=== PATIENT | female | born 2000 | race Caucasian/White ===

== ENCOUNTER 2024-10-25 09:15 | Emergency (ER) | payer MEDICAID ==
[~2024-10-25] VITALS: Ht 160 cm; Wt 122.7 kg
[2024-10-25 09:23] VITALS: BP 125/92; PULSE 78; RESP 16; O2SAT 100
[2024-10-25] MEDS ORDERED: POLOS EACHEYE (10:05)
[2024-10-25] MEDS ORDERED: CEPH-585 PO (10:05)
[2024-10-25 10:10] VITALS: TEMP 96.1
== END 2024-10-25 10:12 | disposition home or self-care (01) ==
LOC: ER 09:16
DX: H01.001 Unspecified blepharitis right upper eyelid (principal)
CPT/HCPCS: 99283

== ENCOUNTER 2025-02-16 15:00 | Emergency (ER) | payer MEDICAID ==
[~2025-02-16] VITALS: Ht 160 cm; Wt 140.1 kg
[2025-02-16] MEDS ORDERED: IBUP-1984 PO (15:42)
[2025-02-16] MEDS ORDERED: DOXY100C43 PO (15:42)
[2025-02-16 16:00] VITALS: BP 118/80; PULSE 78; RESP 16; TEMP 97.8; O2SAT 99
== END 2025-02-16 15:59 | disposition home or self-care (01) ==
LOC: ER 15:01
DX: M77.8 Other enthesopathies, not elsewhere classified (principal); M25.531 Pain in right wrist
CPT/HCPCS: 73110; 99283

== ENCOUNTER 2025-04-05 09:11 | Inpatient (IN) | payer MEDICAID ==
[~2025-04-05] VITALS: Ht 160 cm; Wt 140.7 kg
--- NOTE | 2025-04-05 09:43 | ELECTROCARDIOGRAPH REPORT ---
[facility] Test Date: 2025-04-05 Test Time: 09:40:43 Pat Name: JACK GRECO Department: [facility]- Patient ID: [id number] Room: Gender: F Crime Analyst: : 2000 Requested By: YURIDIA ESPINOSA Order Number: [id number] Reading MD: Dr. Yuridia Espinosa Measurements Intervals [place] Rate: 77 P: 26 NM: 151 QRS: 41 QRSD: 100 T: 41 QT: 389 QTc: 441 Interpretive Statements Sinus rhythm Baseline wander in lead(s) I,III,aVL Electronically Signed On 04-05-2025 14:56:[address] Yuridia Espinosa Please click the below link to view image of tracing.
[2025-04-05 11:06] LABS: ALANINE AMINOTRANSFERASE 102 U/L (12-78); ALBUMIN 3.5 G/DL (3.4-5.0); ALBUMIN/GLOBULIN RATIO 0.9 (1.1-1.5); ALKALINE PHOSPHATASE 92 IU/L (46-116); ANION GAP 9 (8-16); ASPARTATE AMINO TRANSFERASE 59 U/L (10-37); BILIRUBIN,TOTAL 0.6 MG/DL (0.1-1.0); BLOOD UREA NITROGEN 11 MG/DL (7-18); BUN/CREATININE RATIO 11.5 (10.0-20.0); CALCIUM 9.1 MG/DL (8.5-10.1); CHLORIDE 107 MMOL/L (99-107); CREATININE 0.96 MG/DL (0.40-0.90); GLUCOSE 120 MG/DL (70-104); POTASSIUM 4.2 MMOL/L (3.5-5.1); SALICYLATE 0.5 MG/DL (4.0-20.0); SODIUM 141 MMOL/L (135-145); TOTAL CARBON DIOXIDE 24.6 MMOL/L (24-32); TOTAL PROTEIN 7.5 G/DL (6.4-8.2); eCRCL 73 ML/MIN; eGFR 70 ML/MIN
[2025-04-05 11:42] LABS: THYROID STIMULATING HORMONE 96.15 ulU/ml (0.34-4.50)
[2025-04-05 11:43] LABS: ETHANOL < 10 MG/DL (<10)
--- NOTE | 2025-04-05 13:32 | Physician Documentation ---
History of Present Illness ~ Chief Complaint: Mental Health Eval Stated Complaint: L LEG PAIN Time Seen by MD: 13:02 OK to notify your PCP?: Yes Source: patient, RN notes reviewed Mode of Arrival: Ambulatory Exam Limitations: no limitations HPI 24 year old female, with a history of bipolar disorder, anxiety, and s chizophrenia but no longer on any medications, presents with reports of suicidal ideation and intentional overdose today. Patient reports she ingested a handful of her mother's 600mg gabapentin tablets at 0700 this morning. Patient does not have any complaints at this time other than suicidal ideation. She describes a history of suicide attempts, with cutting and medication ov erdose. She denies homicidal ideation. Later, patient reports she has had left knee pain for approximately two weeks and has difficulty walking due to pain. Patient, however, walked to the restroom without any apparent issue. Medication Reconciliation Allergies: Coded Allergies: No Known Allergies (Unverified , 04/05/25) Past Medical History Past Medical History: Hypothyroidism, Anxiety, Depression, Schizophrenia Past Surgical History: noncontributory (tumor removed") Smoking Status: Current every day smoker Alcohol Use: Occasionally Drug Use: marijuana Lives In: Home Review of Systems All Other Systems at this time: Reviewed and Negative ROS As stated above in the HPI, otherwise all systems are reviewed and negative. Physical Exam Vital Signs: RN Vital Signs have been reviewed: Yes, Temperature: 98.1, Source: Temporal, Heart Rate: 72, Respiratory Rate: 16, BP: 132/90, Pulse Oximetry: 100, Weight: 142.000 Oxygen Flow Rate: 0 Pulse Oximetry Reflects: adequate oxygenation Physical Exam General: The patient is well developed, well nourished, nontoxic appearing and is in no acute distress. Skin: [place], warm and dry with no rashes. HEENT: Head was normocephalic and atraumatic. Chest: Clear to auscultation bilaterally without wheezes, rales or rhonchi. No accessory muscle use. No dullness to percussion. Heart: Rate regular and rhythmic. S1, S2. No murmurs. Palpation of the chest wall was normal. No rubs or thrills. Abdomen: Soft, nontender and nondistended. Positive bowel sounds. No guarding or rebound. Extremities: Normal gait without limp. No cyanosis, clubbing or edema. The patient moves all extremities. Pulses were equal and symmetric. Neurologic: Motor and sensation grossly intact. Cranial nerves II-XII grossly intact. A & O x4. Psychologic: Flat affect. No agitation. Progress Progress Note 1502: Transfer orders for [facility]: At this time there is no evidence of an emergent medical condition that would preclude (admission/transfer) to a psychiatric unit via [facility] protocol for further psychiatric, as well as medical evaluation and treatment. At this time I have no reason to believe that transfer via [facility] protocol would have serious medical compromise in the patient's health. Results/Orders Reviewed/noted all lab results: Yes Results/Orders Orders - PADDY GREY MD Electrocardiogram (04/05/25 ) Knee Limited (Ap/Lat) (04/05/25 13:35) Close Observation Level (04/05/25 13:37) Covid19 Binax Poc Result Entry (04/05/25 13:37) Levothyroxine Tablet (Synthroid Tablet) (04/06/25 07:00) Med Rec (04/05/25 15:03) 1799.11 (04/05/25 15:03) Close Observation Level (04/05/25 15:03) Completed Orders - PADDY GREY MD Electrocardiogram (04/05/25 ) CMP (04/05/25 09:37) Salicylate (04/05/25 09:37) Ethanol (04/05/25 09:37) TSH (04/05/25 09:37) Cbc/Diff (04/05/25 13:06) Knee Limited (Ap/Lat) (04/05/25 13:35) Drug Screen, Urine (04/05/25 13:37) Ethanol (04/05/25 13:37) Levothyroxine Tablet (Synthroid Tablet) (04/06/25 07:00) Levothyroxine Tablet (Synthroid Tablet) (04/05/25 14:00) Ua With Microscopic (04/05/25 13:55) Acetaminophen (04/05/25 15:21) Liver Panel (04/05/25 15:21) Pt Inr (04/05/25 15:21) Medications Received in ER Medications (Trade) Dose Ordered Sig/Jacqui Route PRN Reason Start Time Stop Time Status Last Admin Dose Admin (Synthroid tablet) 100 mcg ONCE STAT PO 04/05/25 14:00 04/05/25 14:01 DC 04/05/25 14:12 100 MCG (Geodon capsule) 20 mg ONCE ONCE PO 04/05/25 18:30 04/05/25 18:31 DC 04/05/25 19:03 20 MG Vital Signs 04/05/25 04/05/25 04/05/25 04/05/25 09:21 09:59 10:11 11:05 Temp 98.1 98.1 98.1 Pulse 100 73 62 Resp 16 16 15 16 B/P (MAP) 143/98 116/78 (91) 111/72 (85) Pulse Ox 100 98 100 O2 Flow Rate 0 0 0 04/05/25 04/05/25 04/05/25 04/05/25 12:05 12:28 18:46 19:06 Temp 98.1 Pulse 76 72 88 Resp 15 16 16 18 B/P (MAP) 125/84 (98) 132/90 (104) 103/70 (81) Pulse Ox 100 100 99 O2 Flow Rate 0 0 0 04/05/25 19:13 Resp 16 B/P (MAP) Laboratory Tests Test 04/05/25 10:30 04/05/25 13:50 04/05/25 13:55 04/05/25 14:10 White Blood Count 9.8 Red Blood Count 4.42 Hemoglobin 12.8 Hematocrit 39.5 Mean Corpuscular Volume 89.4 Mean Corpuscular Hemoglobin 28.9 Mean Corpuscular Hemoglobin Concent 32.4 L Red Cell Distribution Width 14.8 H Platelet Count 200 Mean Platelet Volume 10.2 Neutrophils (%) (Auto) 67.0 Lymphocytes (%) (Auto) 19.8 L Monocytes (%) (Auto) 6.1 Eosinophils (%) (Auto) 5.8 Basophils (%) (Auto) 1.3 H Neutrophils # (Auto) 6.6 Lymphocytes # (Auto) 1.9 Monocytes # (Auto) 0.6 Eosinophils # (Auto) 0.6 Basophils # (Auto) 0.1 CBC Comment Sodium Level 141 Potassium Level 4.2 Chloride Level 107 Carbon Dioxide Level 24.6 Anion Gap 9 Blood Urea Nitrogen 11 Creatinine 0.96 H Estimated GFR/1.73 m2 70 BUN/Creatinine Ratio 11.5 Glucose Level 120 H Calcium Level 9.1 Total Bilirubin 0.6 Aspartate Amino Transf (AST/SGOT) 59 H Alanine Aminotransferase (ALT/SGPT) 102 H Alkaline Phosphatase 92 Total Protein 7.5 Albumin 3.5 Globulin 4.0 Albumin/Globulin Ratio 0.9 L Thyroid Stimulating Hormone (TSH) 96.15 H Chemistry Comments Salicylates Level 0.5 L Ethyl Alcohol Level < 10 < 10 SARS-CoV-2 Antigen (Rapid) Negative Urine Specimen Description Cln catch midstream Urine Color Yellow Urine Clarity Clear Urine pH 6.0 Urine Specific [place] 1.020 Urine Protein 30 H Urine Glucose (UA) Negative Urine Ketones Negative Urine Occult Blood Negative Urine Nitrite Negative Urine Bilirubin Negative Urine Urobilinogen 0.2 Urine Leukocyte Esterase Negative Urine RBC 0-2 Urine WBC 0-4 Urine Squamous Epithelial Cells Few Urine Amorphous Urates 1+ Urine Bacteria Few Volume Urine Centrifuged 10 ml Urine Comment Urine Opiates Screen Negative Urine Methadone Screen Negative Urine Fentanyl Screen Negative Urine Barbiturates Screen Negative Urine Phencyclidine Screen Negative Urine Amphetamines Screen Negative Urine Benzodiazepines Screen Negative Urine Cocaine Screen Negative Urine Cannabinoids Screen Positive Drug Screen Comment Test 04/05/25 17:19 04/05/25 17:30 Prothrombin Time 11.4 INR International Normalized Ratio 1.1 Coagulation Comments Total Bilirubin 0.7 Direct Bilirubin 0.2 Aspartate Amino Transf (AST/SGOT) 53 H Alanine Aminotransferase (ALT/SGPT) 95 H Alkaline Phosphatase 94 Total Protein 7.5 Albumin 3.5 Globulin 4.0 Albumin/Globulin Ratio 0.9 L Chemistry Comments Acetaminophen Level < 2.0 L Re-Evaluation Re-Evaluation : Re-Evaluation: Improved Progress Patient was seen and examined. Patient is given reassurance. Patient is suicidal so an overdose attempt. Patient was threatening to leave was placed on a 1799. Patient laboratory work was reassuring with a normal CBC. Patient's tox screen was negative for salicylates acetaminophen as well as alcohol. Positive for marijuana. Patient's chemistry was within normal limits. TSH is elevated at 96.5 patient is on 50 mcg daily and stated that she may need to increase her thyroid medication dose. It was doubled to 100. Initial dose was given in the ER. Afterwards the patient was medically cleared for mental health evaluation and treatment. Patient has no acute medical issues. Patient will need a repeat thyroid in six months. EKG/XRAY/CT/US/VASC/MRI EKG : Additional Comment Test Date: 2025-04-05 Test Time: 09:40:43 Pat Name: JACK GRECO Department: [facility] Patient ID: [id number] Room: Gender: F Paperback Machine Operator: : 2000 Requested By: PADDY GREY Order Number: [id number] Reading MD: Dr. Paddy Grey Measurements Intervals [place] Rate: 77 P: 26 RI: 151 QRS: 41 QRSD: 100 T: 41 QT: 389 QTc: 441 Interpretive Statements Sinus rhythm Baseline wander in lead(s) I,III,aVL Electronically Signed On 04-05-2025 14:56:[address] Paddy Grey Bone/Soft Tissue X-Ray (Ext.) : Additional Comment EXAM: DI KNEE LIMITED (AP/LAT) CLINICAL INDICATION: left pain TECHNIQUE: DI KNEE LIMITED (AP/LAT) Comparison: None FINDINGS/IMPRESSION: There is no evidence of acute fracture or dislocation. The visualized joint space is well maintained. The alignment is anatomical. There is no radiopaque foreign body. Reviewed by myself, Dr. Grey. Medical Decision Making Additional info obtained from: old records Differential Dx:Considerations: Include: Alcohol abuse, Anxiety, Bipolar disorder, Conversion disorder, Depression, Encephaloathy, Panic disorder, Personality disorder, Schizophrenia, Substance abuse, Suicidal, Other Departure Time of Disposition: 15:02 Disposition: 30 STILL A PATIENT Impression: Primary Impression: Intentional overdose Qualified Codes: T50.902A - Poisoning by unspecified drugs, medicaments and biological substances, intentional self-harm, initial encounter Additional Impressions: Suicidal ideation Left knee pain Qualified Codes: M25.562 - Pain in left knee Hypothyroidism Qualified Codes: E03.9 - Hypothyroidism, unspecified Condition: Stable Referrals: NO PRIMARY CARE PROVIDER (PCP) Education Educated: Patient Educated regarding: diagnosis, treatment, prognosis, need for follow up, other Signature Scribe Signature: Scribed for Paddy Grey MD by Chris Jett . 04/05/25 13:33 Attestation: The note accurately reflects work and decisions made by me.Paddy Grey MD 04/05/25 13:32 PADDY GREY MD Apr 05, 2025 13:32 CHRIS ORLANDO Apr 05, 2025 13:37
[2025-04-05 13:39] LABS: BASOPHILS # (AUTO) 0.1 X10'3 (0-0.2); BASOPHILS % (AUTO) 1.3 % (0-1); EOSINOPHILS # (AUTO) 0.6 X10'3 (0-0.9); EOSINOPHILS % (AUTO) 5.8 % (0-6); HEMATOCRIT 39.5 % (35.0-45.0); HEMOGLOBIN 12.8 g/dl (12.0-16.0); LYMPHOCYTES # (AUTO) 1.9 X10'3 (1.1-4.8); LYMPHOCYTES % (AUTO) 19.8 % (21-51); MEAN CORPUSCULAR HEMOGLOBIN 28.9 PG (27.0-31.0); MEAN CORPUSCULAR HGB CONC 32.4 g/dL (33.0-36.5); MEAN CORPUSCULAR VOLUME 89.4 FL (78-98); MEAN PLATELET VOLUME 10.2 FL (7.4-10.4); MONOCYTES # (AUTO) 0.6 X10'3 (0-0.9); MONOCYTES % (AUTO) 6.1 % (2-12); NEUTROPHILS # (AUTO) 6.6 X10'3 (1.8-7.7); PLATELET COUNT 200 X10'3 (140-440); RED BLOOD COUNT 4.42 X10'6 (4.20-5.60); RED CELL DISTRIBUTION WIDTH 14.8 % (11.5-14.5); WHITE BLOOD COUNT 9.8 X10'3 (4.5-11.0)
[2025-04-05] MEDS ORDERED: levoTHYROXINE 75mcg tablet PO STA (13:47)
[2025-04-05] MEDS: levoTHYROXINE 100mcg tablet PO STA (14:12)
--- NOTE | 2025-04-05 14:15 | RADIOLOGY REPORT ---
EXAM: DI KNEE LIMITED (AP/LAT) CLINICAL INDICATION: left pain TECHNIQUE: DI KNEE LIMITED (AP/LAT) Comparison: None FINDINGS/IMPRESSION: There is no evidence of acute fracture or dislocation. The visualized joint space is well maintained. The alignment is anatomical. There is no radiopaque foreign body.
[2025-04-05 14:24] LABS: BILIRUBIN,URINE NEGATIVE (Neg); CLARITY,URINE CLEAR (Clear); COLOR,URINE YELLOW (Yellow); GLUCOSE, URINE NEGATIVE (Neg); KETONES,URINE NEGATIVE (Neg); LEUKOCYTE ESTERASE ,URINE NEGATIVE (Neg); NITRITES, URINE NEGATIVE (Neg); OCCULT BLOOD,URINE NEGATIVE (Neg); PROTEIN,URINE 30 mg/dl (Neg); UROBILINOGEN,URINE 0.2 E.U/dL (0.2-1.0)
[2025-04-05 14:28] LABS: URINE AMPHETAMINE SCREEN NEGATIVE (Neg); URINE BARBITUATE SCREEN NEGATIVE (Neg); URINE BENZODIAZEPINES SCREEN NEGATIVE (Neg); URINE CANNABINOID SCREEN POSITIVE (Neg); URINE COCAINE SCREEN NEGATIVE (Neg); URINE METHADONE SCREEN NEGATIVE (Neg); URINE OPIATE SCREEN NEGATIVE (Neg); URINE PHENCYCLIDINE SCREEN NEGATIVE (Neg)
[2025-04-05 14:31] LABS: UA COLLECTION TYPE CLN CATCH MIDSTREAM
[2025-04-05 14:50] LABS: RBC,URINE 0-2 /HPF (0-2); WBC,URINE 0-4 /HPF (0-4)
[2025-04-05 14:51] LABS: AMORPHOUS URATES 1+; BACTERIA,URINE FEW /HPF (Neg); SQUAMOUS EPITHELIAL CELL,UR FEW /LPF (FEW)
[2025-04-05 17:57] LABS: INR 1.1 INR; PROTHROMBIN TIME 11.4 SECONDS (9.0-12.0)
[2025-04-05 18:16] LABS: ALANINE AMINOTRANSFERASE 95 U/L (12-78); ALBUMIN 3.5 G/DL (3.4-5.0); ALBUMIN/GLOBULIN RATIO 0.9 (1.1-1.5); ALKALINE PHOSPHATASE 94 IU/L (46-116); ASPARTATE AMINO TRANSFERASE 53 U/L (10-37); BILIRUBIN,DIRECT 0.2 MG/DL (0-0.3); BILIRUBIN,TOTAL 0.7 MG/DL (0.1-1.0); TOTAL PROTEIN 7.5 G/DL (6.4-8.2)
[2025-04-05 18:27] LABS: ACETAMINOPHEN < 2.0 UG/ML (10-30)
[2025-04-05] MEDS: ziprasidone 20mg capsule PO ONE (19:03)
[2025-04-05] MEDS ORDERED: loperamide 2mg capsule PO PRN (22:10)
[2025-04-05] MEDS ORDERED: magnesium hydroxide 30ml (MOM) UD suspension PO PRN (22:10)
[2025-04-05] MEDS ORDERED: chlorproMAZINE 25mg tablet PO PRN (22:10)
[2025-04-05] MEDS ORDERED: NICOTINE POLACRILEX 2 MG LOZENGE BC PRN (22:10)
[2025-04-05] MEDS ORDERED: diphenhydrAMINE 25mg capsule PO PRN (22:10)
[2025-04-05] MEDS ORDERED: hydrOXYzine 25 MG tablet PO PRN (22:10)
[2025-04-05] MEDS ORDERED: LEVO50TA8 PO (23:57)
[2025-04-06 00:44] VITALS: RESP 18; O2SAT 100
[2025-04-06 07:00] VITALS: RESP 18; O2SAT 100
[2025-04-06] MEDS ORDERED: levoTHYROXINE 75mcg tablet PO SCH (07:00)
[2025-04-06] MEDS: levoTHYROXINE 100mcg tablet PO SCH (07:15)
[2025-04-06] MEDS: acetaminophen 325mg tablet PO PRN (07:16)
[2025-04-06] MEDS: nicotine 21mg patch - 24 hr TD SCH (07:17)
[2025-04-06 08:07] LABS: CHOL/HDL RATIO 3.3 (0.00-4.99); CHOLESTEROL 177 MG/DL (0-200); HDL CHOLESTEROL 54 MG/DL (35-60); LDL CHOLESTEROL 94 MG/DL (50-100); TRIGLYCERIDES 117 MG/DL (20-135)
[2025-04-06 08:35] VITALS: BP 123/83; PULSE 73; RESP 18; TEMP 97.8; O2SAT 100
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
[2025-04-06 19:00] VITALS: RESP 16; O2SAT 100
[2025-04-06 20:00] VITALS: BP 127/82; PULSE 83; RESP 16; TEMP 97; O2SAT 100
--- NOTE | 2025-04-06 20:02 | HISTORY AND PHYSICAL-Residence ---
History & Physical Providers to CC Resident Creating Document: HAKAN NUNEZ RES ~ History of Present Illness Reason for Admit\Complaint: Suicidal ideation History of Present Illness 24-year-old female with a history of bipolar disorder, anxiety and schizophrenia he is admitted to the mental health unit for suicidal ideation and intentional overdose. She reports she ingested a handful of her mother's 600 mg gabapentin tablets. She denies homicidal ideation. Admitted to the [facility], managed by psychiatrist. She denies any medical concerns or complaints like headache, nausea, vomiting, diarrhea, constipation, fever, chills. She states she does smoke and drink alcohol. She is morbidly obese 10 sees that she has gained a lot of weight recently, due to that her knees are hurting as she is unable to bear her own weight. Allergies: Coded Allergies: No Known Allergies (Unverified , 04/05/25) Home Medications Home Medications Active Reported Levothyroxine Sodium 50 Mcg Tablet 1 Tab PO QAM Past Medical History Past Medical History Bipolar Anxiety Schizophrenia Past Surgical History Surgical History Comment Thyroidectomy Ovarian cyst removal Polyps removal from the ear Past Social History Alcohol Use: Occasionally Drug Use: Marijuana Lives In: Home ROS All Other Systems: Reviewed and Negative ROS Reviewed in full. All negative except for pertinent positive HPI. Exam Vitals: Vital Signs Date Time Temp Pulse Resp B/P (MAP) Pulse Ox O2 Delivery O2 Flow Rate FiO2 04/06/25 08:35 97.8 73 18 123/83 (96) 100 Room Air 04/05/25 19:06 0 General: General: Morbidly obese young female, Awake and Alert, no acute distress. HEENT: Conjunctiva pink, Sclera clear, Mucus Membranes moist. Neck: Supple without masses and tenderness. Resp: Unlabored. Equal breath sounds bilaterally. Heart: Regular rhythm, normal S1 and S2, no rub, murmur or gallop. Abdomen: Soft and non tender no organomegaly. Normal bowel sounds x4 quadrant normoactive. No guarding or rigidity. Extremities: Normal ROM, no swelling, nontender. No cyanosis,clubbing or edema. MONOGRAM TECHNICIAN: No gross motor or sensory abnormalities. Skin: Warm and Dry. Diagnostic Data Last Recorded Lab Results: 04/05/25 1030 04/05/25 1030 Diagnostic Data: Laboratory Tests Test 04/05/25 17:19 Prothrombin Time 11.4 SECONDS (9.0-12.0) INR International Normalized Ratio 1.1 INR Coagulation Comments Advance Care Planning Advanced Care plannin - 30 Minutes Additional Plan 24-year-old female with a history of bipolar disorder, anxiety, and schizophrenia but no longer on any medications presents with reports of suicidal ideation and intentional overdose S/p thyroidectomy on levothyroxine Significantly Elevated TSH Increased dose of levothyroxine to 100 mcg, repeat TSH in 4-6 weeks Suicidal ideation Schizophrenia Bipolar Management per psychiatrist, hospitalist team will continue to follow Date of Service: Apr 06, 2025 Billing Provider: NURY GARCIA MD Common Visit Codes: [id number] INP/OBS CARE (HIGH) HAKAN NUNEZ, KENYON Apr 06, 2025 20:02 NURY GARCIA MD Apr 06, 2025 21:31
[2025-04-07 07:00] VITALS: RESP 16; O2SAT 99
[2025-04-07 08:00] VITALS: BP 126/85; PULSE 78; RESP 16; TEMP 97.3; O2SAT 99
--- NOTE | 2025-04-07 11:43 | PROGRESS NOTE ---
Progress Note Dictate Providers to CC ~ Antibiotic Ordered?: No MRSA Education MRSA Education Provided to pt: No Objective Vitals Vital Signs Date Time Temp Pulse Resp B/P (MAP) Pulse Ox O2 Delivery O2 Flow Rate FiO2 04/07/25 08:00 97.3 78 16 126/85 (99) 99 Room Air 04/07/25 07:00 0.0 Lab Results: 04/05/25 1030 04/05/25 1030 Coagulation Studies Laboratory Tests Test 04/05/25 17:19 Prothrombin Time 11.4 SECONDS (9.0-12.0) INR International Normalized Ratio 1.1 INR Coagulation Comments Counseling Services Smoking & Tobacco Cessation: > 10 Minutes Problem\\Assessment\\Plan Problems/Diagnosis: (1) Schizophrenia (2) Bipolar 2 disorder (3) Anxiety (4) PTSD (post-traumatic stress disorder) Psychiatrist's Progress Note Date of Service: Apr 07, 2025 Notes CHART REVIEW Alla Coleman is a 24-year-old female placed on a 1799 by [facility] for danger to self after she reportedly overdose on a handful of 600 mg gabapentin in a attempts at suicide. Alla reports she has told her mother's medication following stressors in her life that include break up with her girlfriend, significant other that lives in [place] and interpersonal conflicts with her mother. Alla reports she moved from [place] to live with her parents and [facility] beginning in October of 2024. Toxicology report at [facility] ED is positive for marijuana. Alla presents as tearful reports history of conflicts in her life and relationships feeling hopeless and acknowledges overdose was not attempts at suicide. Tanvir reports awareness of self surrounding hospital location in the approximate date and time. No symptoms associated with psychosis is present. lAla reports she was told she struggles with bipolar disorder, anxiety and schizophrenia when living in [place]. Tanvir is not connected with any mental health services for over 12 months. Current medical [facility]. ASSESSMENT The patient was interviewed in observation room. The patient was actively sitting in rec room engaging with peers. The patient endorses "A little bit better." "I know I need help and I want to be better for my mom her health is not the greatest." The patient endorses no worsening mental health symptoms. The patient endorses adequate sleep and food intake. Denies SI. Denies HI. Denies AVH. The patient is stable no acute distress noted. The patient presents as depressed, guarded during session. Per staff report patient is medication compliant. Per staff report no abnormal behaviors. Will continue daily assessment and adjusting treatment as needed. Closely monitor behavior and response to medication during hospitalization. Results Of any Diagn. Testing REVIEW OF LABS WBC 9.8 RBC 4.42 HEMOGLOBIN 12.8 HEMATOCRIT 39.5 PLATELETS 200 SODIUM 141 POTASSIUM 4.2 CHLORIDE 107 ANION GAP 9 BUN 11 CALCIUM 9.1 AST 59 ALT 102 ALBUMIN 3.5 TSH 96.15 COVID NEGATIVE URINALYSIS NEGATIVE URINE TOX SCREEN POSITIVE CANNABIS Appearnace: Other Speech: Other (CIRCUMSTANTIAL) Eye Contact: Normal Motor Activity: Normal Affect: Flat Mood: Depressed Orientation Impairment: None Memory Impairment: None Attention: Normal Hallucinations: None Other: None Suicidality: None Homicidality: None Delusions: None Behavior: Guarded Insight: Poor Judgment: Poor Treatment LATUDA 20MG PO WITH SUPPER DEPAKOTE ER 250MG PO QHS Monitoring by Staff, Milieu, Group, and Individual counseling as needed -- According to the [place] Suicide Assessment the above named patient is on Q15 MINUTE CHECKS. [id number]- We are still titrating medications to an effective dose while maintaining a therapeutic environment to prevent decompensation and readmission. Total time spent 45 minutes REVIEW OF Clinical notes [X ] RN notes [X] PCT documentation [X] SW notes Labs [ X] Medications [X] Care trends/care activity [X] Vitals [X] DISCUSSION WITH senior applications developer [X] Staff SW [X] Treatment Team [X] TREATMENT LATUDA 20MG PO WITH SUPPER DEPAKOTE ER 250MG PO QHS Monitoring by Staff, Milieu, Group, and Individual counseling as needed -- According to the [place] Suicide Assessment the above named patient is on Q15 MINUTE CHECKS. [id number]- We are still titrating medications to an effective dose while maintaining a therapeutic environment to prevent decompensation and readmission. REVIEW OF Clinical notes [X ] RN notes [X] PCT documentation [X] SW notes Labs [ X] Medications [X] Care trends/care activity [X] Vitals [X] DISCUSSION WITH senior applications developer [X] Staff SW [X] Treatment Team [X] Discharge UNSURE AT THIS TIME. DISCHARGE HOMELESS ONCE STABLE. CODING VISIT-PSYCHIATRY Date of Service: Apr 07, 2025 Billing Provider: RICHIE LAST APRN Psych Common Visit Codes: [id number] INP/OBS CARE(Mod) RICHIE LAST APRN Apr 07, 2025 11:43
[2025-04-07] MEDS: lurasidone 20mg tablet PO SCH (17:45)
[2025-04-07 19:00] VITALS: RESP 16; O2SAT 100
[2025-04-07 20:00] VITALS: BP 116/80; PULSE 82; RESP 16; TEMP 97; O2SAT 100
[2025-04-07] MEDS: divalproex sod 250mg ER (24-hour) tablet PO SCH (21:22)
[2025-04-08 07:00] VITALS: RESP 14
[2025-04-08 08:00] VITALS: BP 112/69; PULSE 73; RESP 14; TEMP 97.5; O2SAT 100
[2025-04-08] MEDS: acetaminophen 325mg tablet PO PRN (09:40)
--- NOTE | 2025-04-08 12:08 | PROGRESS NOTE ---
Progress Note Dictate Providers to CC ~ Central Line/PICC still needed: N\\A Antibiotic Ordered?: No MRSA Education MRSA Education Provided to pt: No Objective Vitals Vital Signs Date Time Temp Pulse Resp B/P (MAP) Pulse Ox O2 Delivery O2 Flow Rate FiO2 04/08/25 08:00 97.5 73 14 112/69 (83) 100 04/08/25 07:00 Room Air 04/07/25 07:00 0.0 Lab Results: 04/05/25 1030 04/05/25 1030 Coagulation Studies Laboratory Tests Test 04/05/25 17:19 Prothrombin Time 11.4 SECONDS (9.0-12.0) INR International Normalized Ratio 1.1 INR Coagulation Comments Counseling Services Smoking & Tobacco Cessation: > 10 Minutes Problem\\Assessment\\Plan Problems/Diagnosis: (1) Schizophrenia (2) Bipolar 2 disorder (3) Anxiety (4) PTSD (post-traumatic stress disorder) Psychiatrist's Progress Note Date of Service: Apr 08, 2025 Notes CHART REVIEW Alla Coleman is a 24-year-old female placed on a 179 by S [facility] for danger to self after she reportedly overdose on a handful of 600 mg gabapentin in a attempts at suicide. Alla reports she has told her mother's medication following stressors in her life that include break up with her girlfriend, significant other that lives in [place] and interpersonal conflicts with her mother. Alla reports she moved from [place] to live with her parents and [facility] beginning in October of 2024. Toxicology report at [facility] ED is positive for marijuana. Alla presents as tearful reports history of conflicts in her life and relationships feeling hopeless and acknowledges overdose was not attempts at suicide. Tanvir reports awareness of self surrounding hospital location in the approximate date and time. No symptoms associated with psychosis is present. Alla reports she was told she struggles with bipolar disorder, anxiety and schizophrenia when living in [place]. Tanvir is not connected with any mental health services for over 12 months. Current medical provider [facility]. ASSESSMENT The patient was interviewed in observation room. The patient was actively walking in hallway. The patient endorses "I'm good." "My parents cam eto visit today; it was a nice visit." "She should me she is going to getting rid of my younger because he keeps digging holes in the lawn." "i am pretty depressed about that but what can I do." The patient endorses adequate sleep and food intake. Denies SI. Denies HI. Denies AVH. The patient is stable no acute distress noted. The patient presents as depressed, guarded during session. The patient seems to be minimizing her symptoms. Per staff report patient is medication compliant. Per staff report no abnormal behaviors. Will continue daily assessment and adjusting treatment as needed. Closely monitor behavior and response to medication during hospitalization. Results Of any Diagn. Testing REVIEW OF LABS WBC 9.8 RBC 4.42 HEMOGLOBIN 12.8 HEMATOCRIT 39.5 PLATELETS 200 SODIUM 141 POTASSIUM 4.2 CHLORIDE 107 ANION GAP 9 BUN 11 CALCIUM 9.1 AST 59 ALT 102 ALBUMIN 3.5 TSH 96.15 COVID NEGATIVE URINALYSIS NEGATIVE URINE TOX SCREEN POSITIVE CANNABIS Appearnace: Other Speech: Other (CIRCUMSTANTIAL) Eye Contact: Other (INTERMITTENT) Motor Activity: Normal Affect: Flat Mood: Depressed Orientation Impairment: None Memory Impairment: None Attention: Normal Hallucinations: None Other: None Suicidality: None Homicidality: None Delusions: None Behavior: Cooperative Insight: Fair Judgment: Poor Treatment Increase LATUDA 40MG PO WITH SUPPER Increase DEPAKOTE ER 500MG PO QHS Monitoring by Staff, Milieu, Group, and Individual counseling as needed -- According to the [place] Suicide Assessment the above named patient is on Q15 MINUTE CHECKS. [id number]- We are still titrating medications to an effective dose while maintaining a therapeutic environment to prevent decompensation and readmission. Total Time spent 40 minutes REVIEW OF Clinical notes [X ] RN notes [X] PCT documentation [X] SW notes Labs [ X] Medications [X] Care trends/care activity [X] Vitals [X] DISCUSSION WITH wire mesh gate assembler [X] Staff SW [X] Treatment Team [X] Discharge UNSURE AT THIS TIME. DISCHARGE HOMELESS ONCE STABLE. CODING VISIT-PSYCHIATRY Date of Service: Apr 08, 2025 Billing Provider: RICHIE LAST APRN Psych Common Visit Codes: [id number] INP/OBS CARE(Mod) RICHIE LAST APRN Apr 08, 2025 12:08
[2025-04-08] MEDS: lurasidone 20mg tablet PO SCH (17:32)
[2025-04-08 19:00] VITALS: RESP 20; O2SAT 100
[2025-04-08 20:00] VITALS: BP 142/91; PULSE 81; RESP 20; TEMP 95.8; O2SAT 100
--- NOTE | 2025-04-08 20:51 | PROGRESS NOTE ---
Daily Progress Note Providers to CC ~ Antibiotic Timeout Antibiotic Ordered?: No Subjective This is the hospitalist progress note on patients hospitalized at [facility] psychiatric [facility]itter[facility] for behavioral health. The patient per nursing has IBS and the patient was states that she has runny stools all the time she does not eat that much even though the patient was morbidly obese and it was experiencing significant abdominal discomfort after eating today I tried to clarify specifics if she experiences this discomfort with her IBS and if so if this is worse than her baseline discomfort I could not quantify this with the patient Objective Vital Signs Date Time Temp Pulse Resp B/P (MAP) Pulse Ox O2 Delivery O2 Flow Rate FiO2 04/08/25 08:00 97.5 73 14 112/69 (83) 100 04/08/25 07:00 Room Air 04/07/25 07:00 0.0 Result Diagram: 04/05/25 1030 04/05/25 1030 Gen. No acute distress alert and oriented Lungs clear to ascultation bilaterally, no wheezes rales or rhonchi appreciated Heart normal sinus rhythm no murmurs rubs or clicks noted Abdomen soft, moderate left lower quadrant abdominal tenderness bowel sounds are normoactive Lower extremities no clubbing cyanosis, nor edema appreciated bilaterally Coagulation Studies Laboratory Tests Test 04/05/25 17:19 Prothrombin Time 11.4 SECONDS (9.0-12.0) INR International Normalized Ratio 1.1 INR Coagulation Comments Problem\Assessment\Plan Problems/Diagnosis: (1) Bipolar 2 disorder (2) Intentional overdose # suicidal attempt secondary to intentional overdose of Seroquel Psychiatry is following # hypothyroidism Levothyroxine was increased to 100 mcg at the time of admission with a recommendation to rechecked TSH in 4-6 weeks # significant postprandial abdominal pain- Per nursing staff the patient was IBS and per the patient she has IBS with diarrhea Metamucil nightly and titrate to obtain desired stool consistency Noncontrast CT scan of the abdomen and pelvis is ordered Hospitalist service will continue to follow the patient Date of Service: Apr 08, 2025 Billing Provider: MAYNOR CERRATO DO Common Visit Codes: [id number] INP/OBS CARE(MOD) Problem Qualifiers (1) Intentional overdose: Qualified Codes: T50.902A - Poisoning by unspecified drugs, medicaments and biological substances, intentional self-harm, initial encounter MAYNOR CERRATO DO Apr 08, 2025 20:51
[2025-04-08] MEDS: divalproex sod 250mg ER (24-hour) tablet PO SCH (21:15)
[2025-04-08] MEDS: psyllium seed 5.8 gm packet (sugar-free) PO SCH (21:16)
[2025-04-08 22:20] LABS: URINE HCG NEGATIVE (NEG)
--- NOTE | 2025-04-09 01:43 | RADIOLOGY REPORT ---
Exam: CT CT ABDOMEN PELVIS History: significant left lower quadrant abdominal pain Comparison Study: None Technique: Multidetector spiral CT of the abdomen was performed from lung bases to pubic symphysis. I maging was performed without IV contrast. Axial, coronal and sagittal multiplanar reformats were obta ined from the axial data set by the technologist. Radiation Dose : 1. Abdomen/Pelvis: CTDIvol 36.88 mGy, DLP 2057.56 mGy*cm. Findings: Evaluation of solid organs is limited due to lack of intravenous contrast use. Lung Bases: No acute or significant lung base finding. Normal heart size. No pleural or pericardial effusion. Liver: The liver is enlarged, measuring 21.2 cm in craniocaudal dimension. Mild diffuse hepatic steat osis. No focal lesions. Gallbladder and Biliary Tree: Unremarkable Spleen: Unremarkable Pancreas: The pancreas is grossly normal in appearance. Adrenal Glands: Unremarkable Kidneys: Kidneys are grossly normal without calculi or hydronephrosis. Bladder: Grossly unremarkable for degree of distention. Bowel: The stomach is grossly normal in appearance. Small bowel and colon are normal in caliber and d istribution. The appendix is normal. Ascites: Absent Lymphadenopathy: No mesenteric, retroperitoneal or periportal lymphadenopathy. Abdominal Wall and Mesentery: Unremarkable. Vasculature: The visualized abdominal aorta is normal in size and caliber. Evaluation of abdominal a nd pelvic vessels is limited due to lack of intravenous contrast. Pelvic Organs: Unremarkable Musculoskeletal: No aggressive focal bony lesions, acute fractures or dislocation. IMPRESSION: 1. No acute abdominal or pelvic findings. 2. Hepatomegaly and hepatic steatosis. Radiation optimization: All CT scans at this facility use at least one of these dose optimization mir hniques: automated exposure control mA and/or kV adjustment per patient size (includes targeted exam s where dose is matched to clinical indication) or iterative reconstruction.
[2025-04-09 07:30] VITALS: BP 104/76; PULSE 67; RESP 14; TEMP 97.2; O2SAT 98
--- NOTE | 2025-04-09 11:22 | PROGRESS NOTE ---
Progress Note Dictate Providers to CC ~ Central Line/PICC still needed: N\\A Antibiotic Ordered?: No MRSA Education MRSA Education Provided to pt: No Objective Vitals Vital Signs Date Time Temp Pulse Resp B/P (MAP) Pulse Ox O2 Delivery O2 Flow Rate FiO2 04/08/25 20:00 95.8 81 20 142/91 (108) 100 Room Air 04/07/25 07:00 0.0 Lab Results: 04/05/25 1030 04/05/25 1030 Coagulation Studies Laboratory Tests Test 04/05/25 17:19 Prothrombin Time 11.4 SECONDS (9.0-12.0) INR International Normalized Ratio 1.1 INR Coagulation Comments Counseling Services Smoking & Tobacco Cessation: > 10 Minutes Problem\\Assessment\\Plan Problems/Diagnosis: (1) Schizophrenia (2) Bipolar 2 disorder (3) Anxiety (4) PTSD (post-traumatic stress disorder) Psychiatrist's Progress Note Date of Service: Apr 09, 2025 Notes CHART REVIEW Alla Coleman is a 24-year-old female placed on a 1799 by S [facility] for danger to self after she reportedly overdose on a handful of 600 mg gabapentin in a attempts at suicide. Alla reports she has told her mother's medication following stressors in her life that include break up with her girlfriend, significant other that lives in [place] and interpersonal conflicts with her mother. Alla reports she moved from [place] to live with her parents and [facility] beginning in October of 2024. Toxicology report at [facility] ED is positive for marijuana. Alla presents as tearful reports history of conflicts in her life and relationships feeling hopeless and acknowledges overdose was not attempts at suicide. Tanvir reports awareness of self surrounding hospital location in the approximate date and time. No symptoms associated with psychosis is present. Alla reports she was told she struggles with bipolar disorder, anxiety and schizophrenia when living in [place]. Tanvir is not connected with any mental health services for over 12 months. [facility] medical [facility]. ASSESSMENT The patient was interviewed in observation room. The patient was actively sitting in rec room engaing with peers. The patient endorses "I'm good." "I am trying to push my self to make more responsible actions." The patient endorses no worsening mental health. Denies SI. Denies HI. Denies AVH. The patient is stable no acute distress noted. The patient presents as less depressed, cooperative, and engaged during session. Per staff report patient is medication compliant. Per staff report no abnormal behaviors. Will continue daily assessment and adjusting treatment as needed. Closely monitor behavior and response to medication during hospitalization. Collateral received from Alla parents, with Alla's consent. They agreed with Alla coming home on Saturday and they were able to come up with a safety plan for a safe discharge. Results Of any Diagn. Testing REVIEW OF LABS WBC 9.8 RBC 4.42 HEMOGLOBIN 12.8 HEMATOCRIT 39.5 PLATELETS 200 SODIUM 141 POTASSIUM 4.2 CHLORIDE 107 ANION GAP 9 BUN 11 CALCIUM 9.1 AST 59 ALT 102 ALBUMIN 3.5 TSH 96.15 COVID NEGATIVE URINALYSIS NEGATIVE URINE TOX SCREEN POSITIVE CANNABIS Appearnace: Other Speech: Other (CIRCUMSTANTIAL) Eye Contact: Normal Motor Activity: Normal Affect: Constricted Orientation Impairment: None Memory Impairment: None Attention: Normal Hallucinations: None Other: None Suicidality: None Homicidality: None Delusions: None Behavior: Cooperative Insight: Fair Judgment: Fair Treatment LATUDA 40MG PO WITH SUPPER DEPAKOTE ER 500MG PO QHS Monitoring by Staff, Milieu, Group, and Individual counseling as needed -- According to the [place] Suicide Assessment the above named patient is on Q15 MINUTE CHECKS. [id number]- We are still titrating medications to an effective dose while maintaining a therapeutic environment to prevent decompensation and readmission. Total Time spent 40 minutes REVIEW OF Clinical notes [X ] RN notes [X] PCT documentation [X] SW notes Labs [ X] Medications [X] Care trends/care activity [X] Vitals [X] DISCUSSION WITH half backer [X] Staff SW [X] Treatment Team [X] Discharge UNSURE AT THIS TIME. DISCHARGE HOMELESS ONCE STABLE. CODING VISIT-PSYCHIATRY Date of Service: Apr 09, 2025 Billing Provider: RICHIE LAST APRN Psych Common Visit Codes: [id number] INP/OBS CARE(Low) RICHIE LAST APRN Apr 09, 2025 11:22
[2025-04-09] MEDS: lurasidone 20mg tablet PO SCH (12:43)
[2025-04-09] MEDS: lactose-reduced food (Ensure Enlive) - 237ml bottle PO SCH (13:25)
[2025-04-09 19:00] VITALS: RESP 18; O2SAT 99
[2025-04-09] MEDS: mag hydrox/Alum hydrox/simeth 30ml oral suspension PO PRN (19:44)
[2025-04-09 20:00] VITALS: BP 134/74; PULSE 97; RESP 18; TEMP 97.6; O2SAT 99
[2025-04-10] MEDS: traZODone 50mg tablet PO PRN (00:19)
[2025-04-10 07:30] VITALS: BP 117/72; PULSE 82; RESP 15; TEMP 97; O2SAT 99
[2025-04-10] MEDS ORDERED: LEVO100T9 PO (10:56)
[2025-04-10] MEDS ORDERED: LURA20TA2 PO (10:56)
[2025-04-10] MEDS ORDERED: DIVA250T8 PO (10:56)
--- NOTE | 2025-04-10 11:00 | DISCHARGE SUMMARY ---
Discharge Summary Providers to CC ~ Discharge Summary Admission Diagnosis: BIPOLAR TWO DISORDER. INTENTIONAL OVERDOSE Hospital Course DATE OF ADMISSION: DATE OF DISCHARGE: Discharge Diagnosis\\Comment: BIPOLAR TWO DISORDER. INTENTIONAL OVERDOSE Operations\\Procedures: NONE Consultants: MEDICAL TEAM Complications: NONE Condition on DC: Stable 2 or more antipsychotic used: No 2/more antipsychotic addressed: No Does Patient smoke: Yes Smoking education given.: Yes New Medications: Divalproex Sodium (Divalproex Sodium Er) 250 Mg Tab.sr.24h 500 MG PO HS for 14 Days, #28 TAB.SR Levothyroxine Sodium (Levothyroxine Sodium) 100 Mcg Tablet 100 MCG PO Q24H@07 for 14 Days, #14 TAB Lurasidone HCl (Lurasidone HCl) 20 Mg Tablet 40 MG PO WL for 14 Days, #28 TAB Discontinued Medications: Levothyroxine Sodium (Levothyroxine Sodium) 50 Mcg Tablet 1 TAB PO QAM Discharge Summary: CHART REVIEW Patient actively seen and examined on day of discharge 04/10/2025, by myself, KRAIG Toussaint. The patient is interviewed in observation room. The patient endorses "Good." Denies SI. Denies HI. Denies AVH. Alla was able to formulate a safety plan which includes going to the emergency room if symptoms return or worsen. Call [phone] or [phone] for immediate assistance if necessary. During his hospital stay, Alla receive multidisciplinary treatment he adhered to his medication regimen and has been pleasant and cooperative. She denies any suicidal ideation (SI), homicidal ideation (HI), auditory/visual hallucination (HI). Staff has reported no behavioral issues, and the patient has been sleeping well, adequate food intake, with no mood or behavioral changes noted. The decision to discharge Alla was made in consensus with the treatment team, including the social contact worker, community association manager, and nurse charge rn on duty. The patient was E-scribed a 14 day supply of medications. MENTAL STATUS EXAM APPEARANCE: APPROPRIATELY. DRESSED IN STREET CLOTHING. SPEECH: CIRCUMSTANCE EYE CONTACT: NORMAL AFFECT: CONGRUENT WITH MOOD MOOD: "GOOD" ORIENTATION IMPAIRMENT: NONE MEMORY IMPAIRMENT: NONE ATTENTION: NORMAL HALLUCINATIONS: NONE SUICIDALITY: NONE HOMICIDALITY: NONE DELUSIONS: NONE BEHAVIOR: COOPERATIVE, PLEASANT JUDGMENT: FAIR INSIGHT: FAIR Continue Current Inpatient Psychotropic Regimen @ home Follow-Up with Psychiatric Provider Safety Plan Discussed DISCHARGE CONDITION: Her readiness for discharge is supported by his stable mental status, adherence to treatment, and proactive approach to managing his mental health. Denies SI. Denies HI. Denies A/V/H. The patient has been informed to continue follow-up care to ensure ongoing support and monitoring. Patient discharged to home. *Problems/Diagnosis: (1) Bipolar 2 disorder (2) Intentional overdose Status: Acute Total Time Spent on D/C: > 30 Minutes Counseling Services Smoking & Tobacco Cessation: > 10 Minutes CODING VISIT-PSYCHIATRY Date of Service: Apr 10, 2025 Billing Provider: RICHIE LAST APRN Psych Common Visit Codes: 64003-ENY/OBS DISCH DAY >30min Problem Qualifiers (1) Intentional overdose: Qualified Codes: T50.902A - Poisoning by unspecified drugs, medicaments and biological substances, intentional self-harm, initial encounter RICHIE LAST APRN Apr 10, 2025 10:59
== END 2025-04-10 12:01 | disposition home or self-care (01) | DRG 753 ==
LOC: ER 09:11 → ADULT MH 17:30
PROVIDERS: ADMIT Psychiatry & Neurology Psychiatry; ATTEND Psychiatry & Neurology Psychiatry
PROC: GZHZZZZ Group Psychotherapy (ICD-10-PCS; principal; 2025-04-06)
PROC: GZ56ZZZ Individual Psychotherapy, Supportive (ICD-10-PCS; 2025-04-06)
DX: F31.81 Bipolar II disorder (principal); R45.851 Suicidal ideations; E03.9 Hypothyroidism, unspecified; M25.562 Pain in left knee; F20.9 Schizophrenia, unspecified; Z20.822 Contact with and (suspected) exposure to COVID-19; F41.9 Anxiety disorder, unspecified; F43.10 Post-traumatic stress disorder, unspecified; K58.9 Irritable bowel syndrome, unspecified; Z59.00 Homelessness unspecified; F17.210 Nicotine dependence, cigarettes, uncomplicated; T50.992A Poisoning by other drugs, medicaments and biological substances, intentional self-harm, initial encounter; Y92.89 Other specified places as the place of occurrence of the external cause
CPT/HCPCS: 36415; 73560; 74176; 80053; 80061; 80076; 80305; 80320; 80329; 81001; 81025; 84443; 85025; 85610; 87081; 87811; 93005; 99285; A6250; J7030